=== PATIENT | female | born 1990 | race Caucasian/White ===

== ENCOUNTER → 2017-12-19 | Outpatient (CLI) | payer OTHER | END | disposition home or self-care (01) | LOC: US 07:56 | DX: R10.11 Right upper quadrant pain (principal) | CPT/HCPCS: 76705 ==

== ENCOUNTER 2018-01-12 13:51 | Emergency (ER) | payer OTHER ==
[~2018-01-12] VITALS: Ht 154.9 cm; Wt 59.0 kg
[2018-01-12 14:44] LABS: BILIRUBIN,URINE NEGATIVE (NEG); CLARITY,URINE CLEAR; COLOR,URINE YELLOW; NITRITE,URINE NEGATIVE (NEG); PH,URINE 5.5; PROTEIN,URINE NEGATIVE (NEG-TRACE); UROBILINOGEN,URINE 0.2 mg/dL (0.2 mg/dL)
[2018-01-12 14:49] LABS: BARBITURATES NEG (NEG); BENZODIAZEPINES NEG (NEG); CANNABINOIDS NEG (NEG); COCAINE NEG (NEG); METHADONE NEG (NEG); OPIATES NEG (NEG); PHENCYCLIDINE NEG (NEG)
[2018-01-12 14:54] LABS: AMPHETAMINE/METHAMPHETAMINE NEG (NEG)
[2018-01-12 14:56] LABS: BASO % 1 % (0-3); EOS # 0.1 x10^3/uL (0.0-0.7); EOS % 1 % (0-3); HEMATOCRIT 39.5 % (36.0-47.0); HEMOGLOBIN 13.1 g/dL (12.0-15.5); LYMPH % 35 % (24-48); MEAN CORPUSCULAR HEMOGLOBIN 26 pg (25-35); MEAN CORPUSCULAR HGB CONC 33 g/dL (31-37); MEAN CORPUSCULAR VOLUME 79 fL (79-100); MONO # 0.3 x10^3/uL (0.0-1.1); MONO % 6 % (0-9); NEUT # 3.3 x10^3uL (1.8-7.7); NEUT % 58 % (31-73); PLATELET COUNT 232 x10^3/uL (140-400); RED BLOOD COUNT 5.03 x10^6/uL (3.50-5.40); RED CELL DISTRIBUTION WIDTH 16.4 % (11.5-14.5); WHITE BLOOD COUNT 5.7 x10^3/uL (4.0-11.0)
[2018-01-12 15:07] LABS: BACTERIA,URINE 0 /HPF (0-FEW); HYALINE CASTS, URINE OCCASIONAL /HPF; RBC,URINE 0 /HPF (0-2); SQUAMOUS EPITHELIAL CELL,UR FEW /LPF; WBC,URINE OCC /HPF (0-4)
[2018-01-12 15:07] LABS: CREATININE 0.7 mg/dL (0.6-1.0); GFR 100.4; POTASSIUM 3.8 mmol/L (3.5-5.1)
[2018-01-12 15:13] LABS: ALBUMIN 3.9 g/dL (3.4-5.0); TOTAL BILIRUBIN 0.8 mg/dL (0.2-1.0)
--- NOTE | 2018-01-12 15:26 | RAD ---
PA and lateral chest radiograph. History: Pain with inhalation. Comparison: None. Findings: Cardiomediastinal silhouette is within normal limits for size. Bilateral lung alcantar appear clear without evidence of infiltrate, effusion, or pneumothorax. Impression: 1. No acute cardiopulmonary process. Electronically signed by: Gesron Neal MD (01/12/2018 3:23 PM) [facility] [place]
[2018-01-12] MEDS ORDERED: IOHEXOL 300 MG/ML 100ML VIAL. IV ONE (15:45)
--- NOTE | 2018-01-12 16:11 | PHYS DOC ---
Past Medical History Past Medical History: No Pertinent History Past Surgical History: No Surgical History Alcohol Use: None Drug Use: None Adult General Chief Complaint Chief Complaint: ABDOMINAL PAIN HPI HPI Patient is a 27 year old Female who presents with right mid abdominal pain that started last night and she has had frequent GERD recently. Patient states that now she has left upper fullness that comes and goes along with the nausea and the burning from GERD. He is on Sunday she recently got back from [facility]. Patient states that she came back on Sunday with a head cold and had a fever for 101.5. Patient states that by Sunday morning the fever was gone and she has no longer had a fever. Patient denies any urinary symptoms. Review of Systems Review of Systems Constitutional: Denies fever or chills [] Eyes: Denies change in visual acuity, redness, or eye pain [] HENT: Denies nasal congestion or sore throat [] Respiratory: Denies cough or shortness of breath [] Cardiovascular: No additional information not addressed in HPI [] GI: Right mid abdominal pain, nausea and Left abdominal bloating. Denies vomiting, bloody stools or diarrhea [] : Denies dysuria or hematuria [] Musculoskeletal: Denies back pain or joint pain [] Integument: Denies rash or skin lesions [] Neurologic: Denies headache, focal weakness or sensory changes [] Endocrine: Denies polyuria or polydipsia [] All other systems were reviewed and found to be within normal limits, except as documented in this note. Current Medications Current Medications Current Medications Medications (Trade) Dose Ordered Sig/Francie Start Time Stop Time Status Last Admin Dose Admin Iohexol (Omnipaque 300 Mg/ml) 75 ml 1X ONCE 01/12/18 15:45 01/12/18 15:46 DC 01/12/18 15:51 75 ML Allergies Allergies Allergies Coded Allergies Type Severity Reaction Last Updated Verified No Known Drug Allergies 01/12/18 No Physical Exam Physical Exam Constitutional: Well developed, well nourished, no acute distress, non-toxic appearance. [] HENT: Normocephalic, atraumatic, bilateral external ears normal, oropharynx moist, no oral exudates, nose normal. [] Eyes: PERRLA, EOMI, conjunctiva normal, no discharge. [] Neck: Normal range of motion, no tenderness, supple, no stridor. [] Cardiovascular:Heart rate regular rhythm, no murmur [] Lungs & Thorax: Bilateral breath sounds clear to auscultation [] Abdomen: Bowel sounds normal, soft, Right mid abdominal tenderness, no masses, no pulsatile masses. [] Skin: Warm, dry, no erythema, no rash. [] Back: No tenderness, no CVA tenderness. [] Extremities: No tenderness, no cyanosis, no clubbing, ROM intact, no edema. [] Neurologic: Alert and oriented X 3, normal motor function, normal sensory function, no focal deficits noted. [] Psychologic: Affect normal, judgement normal, mood normal. [] Current Patient Data Vital Signs Vital Signs Date Time Temp Pulse Resp B/P (MAP) Pulse Ox O2 Delivery O2 Flow Rate FiO2 01/12/18 14:18 98.3 87 18 129/77 (94) 99 98.3 Lab Values Laboratory Tests Test 01/12/18 14:15 01/12/18 14:22 01/12/18 14:50 Urine Collection Type Void Urine Color Yellow Urine Clarity Clear Urine pH 5.5 Urine Specific [place] >=1.030 Urine Protein Negative mg/dL (NEG-TRACE) Urine Glucose (UA) Negative mg/dL (NEG) Urine Ketones (Stick) Negative mg/dL (NEG) Urine Blood Negative (NEG) Urine Nitrite Negative (NEG) Urine Bilirubin Negative (NEG) Urine Urobilinogen Dipstick 0.2 mg/dL (0.2 mg/dL) Urine Leukocyte Esterase Negative (NEG) Urine RBC 0 /HPF (0-2) Urine WBC Occ /HPF (0-4) Urine Squamous Epithelial Cells Few /LPF Urine Bacteria 0 /HPF (0-FEW) Urine Hyaline Casts Occasional /HPF Urine Mucus Marked /LPF Urine Opiates Screen Neg (NEG) Urine Methadone Screen Neg (NEG) Urine Barbiturates Neg (NEG) Urine Phencyclidine Screen Neg (NEG) Urine Amphetamine/Methamphetamine Neg (NEG) Urine Benzodiazepines Screen Neg (NEG) Urine Cocaine Screen Neg (NEG) Urine Cannabinoids Screen Neg (NEG) Urine Ethyl Alcohol Neg (NEG) POC Urine HCG, Qualitative Hcg negative (Negative) White Blood Count 5.7 x10^3/uL (4.0-11.0) Red Blood Count 5.03 x10^6/uL (3.50-5.40) Hemoglobin 13.1 g/dL (12.0-15.5) Hematocrit 39.5 % (36.0-47.0) Mean Corpuscular Volume 79 fL (79-100) Mean Corpuscular Hemoglobin 26 pg (25-35) Mean Corpuscular Hemoglobin Concent 33 g/dL (31-37) Red Cell Distribution Width 16.4 % (11.5-14.5) H Platelet Count 232 x10^3/uL (140-400) Neutrophils (%) (Auto) 58 % (31-73) Lymphocytes (%) (Auto) 35 % (24-48) Monocytes (%) (Auto) 6 % (0-9) Eosinophils (%) (Auto) 1 % (0-3) Basophils (%) (Auto) 1 % (0-3) Neutrophils # (Auto) 3.3 x10^3uL (1.8-7.7) Lymphocytes # (Auto) 2.0 x10^3/uL (1.0-4.8) Monocytes # (Auto) 0.3 x10^3/uL (0.0-1.1) Eosinophils # (Auto) 0.1 x10^3/uL (0.0-0.7) Basophils # (Auto) 0.0 x10^3/uL (0.0-0.2) Sodium Level 137 mmol/L (136-145) Potassium Level 3.8 mmol/L (3.5-5.1) Chloride Level 103 mmol/L (98-107) Carbon Dioxide Level 27 mmol/L (21-32) Anion Gap 7 (6-14) Blood Urea Nitrogen 11 mg/dL (7-20) Creatinine 0.7 mg/dL (0.6-1.0) Estimated GFR (Cockcroft-Gault) 100.4 BUN/Creatinine Ratio 16 (6-20) Glucose Level 84 mg/dL (70-99) Calcium Level 10.0 mg/dL (8.5-10.1) Total Bilirubin 0.8 mg/dL (0.2-1.0) Aspartate Amino Transferase (AST) 25 U/L (15-37) Alanine Aminotransferase (ALT) 34 U/L (14-59) Alkaline Phosphatase 91 U/L (46-116) Troponin I Quantitative < 0.017 ng/mL (0.000-0.055) Total Protein 8.0 g/dL (6.4-8.2) Albumin 3.9 g/dL (3.4-5.0) Albumin/Globulin Ratio 1.0 (1.0-1.7) Lipase 125 U/L (73-393) Laboratory Tests 01/12/18 14:50 Laboratory Tests 01/12/18 14:50 EKG EKG [] Radiology/Procedures Radiology/Procedures CHEST X RAY, ABD PELV CT[] Impressions: [address] [id number] IMAGING REPORT Signed PATIENT: BENJI ROD I ACCOUNT: [id number] : 1990 LOCATION: ER AGE: 27 SEX: F EXAM STATUS: REG ER ORD. PHYSICIAN: ALFRED FIGUEREDO APRN REASON: pain with inhalation,PREG TEST PROCEDURE: CHEST PA & LATERAL PA and lateral chest radiograph. History: Pain with inhalation. Comparison: None. Findings: Cardiomediastinal silhouette is within normal limits for size. Bilateral lung alcantar appear clear without evidence of infiltrate, effusion, or pneumothorax. Impression: 1. No acute cardiopulmonary process. Electronically signed by: Gerson Machado MD (01/12/2018 3:23 PM) [facility] [place] DICTATED and SIGNED BY: GERSON MACHADO MD DATE: 01/12/[address] [id number] IMAGING REPORT Signed PATIENT: BENJI ROD I ACCOUNT: [id number] : 1990 LOCATION: ER AGE: 27 SEX: F EXAM STATUS: REG ER ORD. PHYSICIAN: ALFRED FIGUEREDO APRN REASON: abdominal pain PROCEDURE: CT ABD PELV W/ IV CONTRST ONLY CT abdomen and pelvis with contrast Clinical Indication: Abdominal pain COMPARISON: Abdominal ultrasound dated 12/19/2017 TECHNIQUE: Multiple contiguous axial images were obtained throughout the abdomen and pelvis with the use of IV contrast. Axial images were reformatted into coronal and sagittal planes. 75 mL Omni 300 was administered. Abdomen findings: The liver, gallbladder, spleen, pancreas, and adrenal glands are unremarkable. The kidneys are unremarkable. Prominent mesenteric lymph nodes do not meet CT criteria for enlargement. There is no significant adenopathy identified. There is no evidence of free intraperitoneal fluid or pneumoperitoneum. Visualized portions of the bowel are grossly unremarkable. Normal appendix. Pelvis findings: The bladder is underdistended limiting evaluation. Air within the vaginal canal likely related to tampon. Trace pelvic free fluid. No significant iliac or inguinal adenopathy is identified. No acute osseous abnormality. Sclerotic focus near the left acetabulum most likely related to bone island. IMPRESSION: 1. No acute intra-abdominal or intrapelvic process identified. 2. Trace pelvic free fluid is likely physiologic given patient's age. PQRS Compliance Statement: One or more of the following individualized dose reduction techniques were utilized for this examination: 1. Automated exposure control 2. Adjustment of the mA and/or kV according to patient size 3. Use of iterative reconstruction technique Electronically signed by: Michael Vick MD (01/12/2018 4:14 PM) [facility] DICTATED and SIGNED BY: MICHAEL VICK MD DATE: 01/12/18 1602 Course & Med Decision Making Course & Med Decision Making On examination patient had right mid upper abdominal tenderness with palpation. Patient abdomen is soft. Patient is afebrile. Patient states her left upper abdomen feels full. No distention is seen. Patient states she is currently on her menses. Patient's urine is not infected per urinalysis. Patient is not per urine . Patient states that the pain is dull and annoying in quality rates it as 3 out of 10. Patient states the pain will get worse on the right side when inhaling. Patient states she had a bowel movement earlier today that was soft. CT and chest x ray show no acute findings. Patient should follow up with her primary care for further evaluation. Patient to take Pepcid or Zantac for indigestion. Patient to be discharged home. [] Dragon Disclaimer Dragon Disclaimer This electronic medical record was generated, in whole or in part, using a voice recognition dictation system. Departure Departure Impression: Primary Impression: Abdominal pain Disposition: HOME, SELF-CARE Condition: STABLE Referrals: ALLY CHAVIRA MD (PCP) WALLY WRIGHT MD Patient Instructions: Abdominal Pain, Indigestion Additional Instructions: Follow up with GI and your primary care physician. Problem Qualifiers Primary Impression: Abdominal pain Abdominal location: epigastric Qualified Codes: R10.13 - Epigastric pain ALFRED FIGUEREDO [employer] Jan 12, 2018 16:11
--- NOTE | 2018-01-12 16:17 | RAD ---
CT abdomen and pelvis with contrast Clinical Indication: Abdominal pain COMPARISON: Abdominal ultrasound dated 12/19/2017 TECHNIQUE: Multiple contiguous axial images were obtained throughout the abdomen and pelvis with the use of IV contrast. Axial images were reformatted into coronal and sagittal planes. 75 mL Omni 300 was administered. Abdomen findings: The liver, gallbladder, spleen, pancreas, and adrenal glands are unremarkable. The kidneys are unremarkable. Prominent mesenteric lymph nodes do not meet CT criteria for enlargement. There is no significant adenopathy identified. There is no evidence of free intraperitoneal fluid or pneumoperitoneum. Visualized portions of the bowel are grossly unremarkable. Normal appendix. Pelvis findings: The bladder is underdistended limiting evaluation. Air within the vaginal canal likely related to tampon. Trace pelvic free fluid. No significant iliac or inguinal adenopathy is identified. No acute osseous abnormality. Sclerotic focus near the left acetabulum most likely related to bone island. IMPRESSION: 1. No acute intra-abdominal or intrapelvic process identified. 2. Trace pelvic free fluid is likely physiologic given patient's age. PQRS Compliance Statement: One or more of the following individualized dose reduction techniques were utilized for this examination: 1. Automated exposure control 2. Adjustment of the mA and/or kV according to patient size 3. Use of iterative reconstruction technique Electronically signed by: Michael Vick MD (01/12/2018 4:14 PM) [facility]
[2018-01-12 16:30] VITALS: BP 110/69
[2018-01-12] MEDS ORDERED: LIDO:MAALOX 1:1 20 ML SINGLE DOSE. SWSW ONE (16:45)
== END 2018-01-12 16:56 | disposition home or self-care (01) ==
LOC: ER 13:51
DX: R10.11 Right upper quadrant pain (principal); R11.0 Nausea; K21.9 Gastro-esophageal reflux disease without esophagitis
CPT/HCPCS: 36415; 71046; 74177; 80053; 80307; 81001; 81025; 83690; 84484; 85025; 99285; Q9967; G0479